=== PATIENT | female | born 1980 | race Two or more races ===

== ENCOUNTER 2016-06-09 23:34 | Emergency (ER) | payer OTHER ==
[~2016-06-09 23:34] MED LIST: DOXYCYCLINE HY100 M3 PO; HYDROCODON-ACE1 EA17 PO; IBUPROFEN800 M1 PO; NORCO 5-325 TA1 EACH PO; SERTRALINE HCL100 M5 PO
[2016-09-18] MEDS ORDERED: CLARAVIS PO (14:04)
== END 2016-06-10 01:15 | disposition left against medical advice (07) ==
LOC: EDMED 23:34
DX: M25.511 Pain in right shoulder (principal); Z53.21 Procedure and treatment not carried out due to patient leaving prior to being seen by health care provider